=== PATIENT | female | born 1980 | race Two or more races ===

== ENCOUNTER 2024-02-29 12:42 | Emergency (ER) | payer SELFPAY ==
[~2024-02-29] VITALS: Ht 152.4 cm; Wt 59.9 kg
[2024-02-29 13:31] LABS: Urine Bacteria None Seen /hpf (None Seen)
[2024-02-29 13:41] LABS: Urine Blood 3+ /uL (Negative); Urine Budding Yeast FEW /hpf (None Seen); Urine Mucus FEW (None Seen); Urine Protein, UAD 1+ (Negative); Urine Specific Gravity 1.027 (1.001-1.035); Urine Urobilinogen Normal (Negative); Urine WBC 28 /hpf (0 - 5); Urine pH 5.5 (5.0-9.0)
[2024-02-29 13:42] LABS: Urine Clarity CLOUDY (Clear); Urine Color Yellow (Yellow)
[2024-02-29 13:45] LABS: Basophils # (auto) 0.1 10 ^3/uL (0-0.2); Basophils % (auto) 0.9 % (0.0-2.0); Eosinophils # (auto) 0.1 10 ^3/uL (0-0.8); Eosinophils % (auto) 0.9 % (0.0-7.0); Hematocrit 41.5 % (36.0-46.0); Hemoglobin 13.8 g/dL (12.2-16.2); Lymphocytes # (auto) 1.8 10 ^3/uL (0.4-5.4); Lymphocytes % (auto) 20.3 % (10.0-50.0); Mean Corpuscular Hemoglobin 28.4 pg (28.0-32.0); Mean Corpuscular Hgb Conc. 33.2 g/dL (32.0-36.0); Mean Corpuscular Volume 85.4 fL (80.0-100.0); Monocytes # (auto) 0.6 10 ^3/uL (0-1.3); Monocytes % (auto) 7.2 % (0.0-12.0); Neutrophils # (auto) 6.3 10 ^3/uL (1.6-8.6); Neutrophils % (auto) 70.7 % (37.0-80.0); Nucleated Red Blood Cells % 0.1 %; Red Blood Cells 4.86 10^6/uL (4.0-5.20); Red Cell Distribution Width 15.7 % (11.8-14.3); White Blood Cell 8.9 10^3/uL (4.4-10.8)
[2024-02-29 13:59] LABS: Chloride 107 mmol/L (98-107); Potassium 4.2 mmol/L (3.5-5.1); Sodium 139 mmol/L (136-145)
[2024-02-29 14:00] LABS: Anion Gap 4 (5-15); Carbon Dioxide 28 mmol/L (20-30)
[2024-02-29 14:01] LABS: Calcium 9.7 mg/dL (8.7-10.4)
[2024-02-29 14:05] LABS: BUN/Creatinine Ratio 12.8 (10.0-20.0); Blood Urea Nitrogen 10 mg/dL (9-23); Glucose 98 mg/dL (74-106)
[2024-02-29] MEDS: KETOROLAC TROMETH 30 MG/ML 1ML VIAL IV ONE (16:02)
[2024-02-29] MEDS: TAMSULOSIN HYDROCHLORIDE 0.4 MG CAP PO ONE (16:03)
[2024-02-29 16:32] VITALS: BP 149/77; PULSE 74; RESP 16; TEMP 98.2; O2SAT 100
== END 2024-02-29 16:33 | disposition home or self-care (01) ==
LOC: ER 12:42
DX: R10.84 Generalized abdominal pain (principal); R31.9 Hematuria, unspecified; J45.909 Unspecified asthma, uncomplicated; Z87.442 Personal history of urinary calculi
CPT/HCPCS: 36415; 74176; 80048; 81001; 81025; 82962; 85025; 93005; 96374; 99285; J1885